=== PATIENT | male | born 1965 | race Caucasian/White ===

== ENCOUNTER 2017-11-02 05:57 | Day surgery (SDC) | END 2017-11-02 06:27 | disposition home or self-care (01) ==

== ENCOUNTER 2017-11-10 09:28 | Day surgery (SDC) | END 2017-11-10 10:25 | disposition home or self-care (01) ==

== ENCOUNTER 2017-11-17 09:25 | Day surgery (SDC) | END 2017-11-17 15:08 | disposition home or self-care (01) ==

== ENCOUNTER 2017-12-08 08:50 | Day surgery (SDC) | END 2017-12-08 13:12 | disposition home or self-care (01) ==

== ENCOUNTER 2017-12-22 09:23 | Day surgery (SDC) | END 2017-12-22 14:00 | disposition home or self-care (01) ==

== ENCOUNTER 2018-01-27 07:56 | Day surgery (SDC) | END 2018-01-27 15:16 | disposition home or self-care (01) ==